=== PATIENT | male | born 1995 | race Caucasian/White ===

== ENCOUNTER → 2021-08-05 | Emergency (ER) | payer OTHER ==
[~2021-08-05] VITALS: Ht 180.3 cm; Wt 81.8 kg
[~2021-08-05] MED LIST: KETOROLAC TROMETHAMINE 30 MG/ML VIAL IVP ONE
[2021-08-05 15:10] VITALS: BP 124/73
== END | disposition home or self-care (01) ==
LOC: EMS 10:56
DX: S33.5XXA Sprain of ligaments of lumbar spine, initial encounter (principal); S13.4XXA Sprain of ligaments of cervical spine, initial encounter; S40.012A Contusion of left shoulder, initial encounter; S70.02XA Contusion of left hip, initial encounter; V89.2XXA Person injured in unspecified motor-vehicle accident, traffic, initial encounter; Y93.89 Activity, other specified; Y92.89 Other specified places as the place of occurrence of the external cause; Y99.8 Other external cause status
CPT/HCPCS: 70450; 71045; 72070; 72100; 72125; 72170; 96374; 99284; J1885; 29240